=== PATIENT | female | born 1940 | race African-American/Black ===

== ENCOUNTER 2017-09-20 22:15 | Inpatient (IN) | payer OTHER ==
[~2017-09-20] VITALS: Ht 167.6 cm; Wt 81.6 kg
[2017-09-21] MEDS ORDERED: ASPIRIN 81MG TABLET PO ONE (00:15)
[2017-09-21 00:46] LABS: EOSINOPHILS % 0.6 % (0.0-5.0); HEMATOCRIT. 38.1 % (36.0-48.0); HEMOGLOBIN. 12.7 g/dL (12.0-16.0); LYMPHOCYTES % 10.2 % (20.0-50.0); MEAN CORPUSCULAR HEMOGLOBIN 26.4 pg (28.0-32.0); MEAN CORPUSCULAR VOLUME 79.3 fL (81.0-99.0); MONOCYTES % 7.9 % (2.0-8.0); NEUTROPHILS % 80.3 % (40.0-76.0); PLATELET 166 x1000/uL (130-400); RED CELL DISTRIBUTION WIDTH 14.9 % (11.6-14.6)
[2017-09-21 00:58] LABS: PROTHROMBIN TIME 10.9 sec (9.4-11.6)
[2017-09-21] MEDS ORDERED: KETOROLAC 30MG/ML VIAL IV ONE (01:00)
[2017-09-21 01:02] LABS: CARBON DIOXIDE 32 mEq/L (21-32); CHLORIDE 100 mEq/L (98-107); TROPONIN I < 0.02 ng/mL (0.00-0.04)
[2017-09-21] MEDS ORDERED: HYDROCODONE/APAP 7.5/325MG 1 TAB TABLET PO PRN (06:30)
[2017-09-21] MEDS ORDERED: GUAIFENESIN 200MG/10ML SUGAR FREE UDC PO PRN (06:30)
[2017-09-21] MEDS ORDERED: MAGNESIUM/ALUMINUM HYDROXIDE/SIMETHICONE 30ML UDC PO PRN (06:30)
[2017-09-21] MEDS ORDERED: MORPHINE SULFATE 2 MG/ML CPJ (NOT FOR IM USE) IV PRN (06:30)
[2017-09-21] MEDS ORDERED: NA PHOS,M-B/NA PHOS,DI-BA ENEMA 118ML PR PRN (06:30)
[2017-09-21] MEDS ORDERED: ONDANSETRON HCL 4MG/2ML VIAL IV PRN (06:30)
[2017-09-21] MEDS ORDERED: DOCUSATE SODIUM 100MG CAPSULE PO PRN (06:30)
[2017-09-21] MEDS ORDERED: ACETAMINOPHEN 325MG TABLET PO PRN (06:30)
[2017-09-21] MEDS ORDERED: DIPHENHYDRAMINE 50MG/ML VIAL IV PRN (06:30)
[2017-09-21] MEDS ORDERED: LORAZEPAM 0.5MG TABLET PO PRN (06:30)
[2017-09-21] MEDS ORDERED: CLONIDINE 0.1MG TABLET PO PRN (06:30)
[2017-09-21] MEDS ORDERED: IPRATROPIUM/ALBUTEROL 0.5-3(2.5)MG/3ML NEB INH PRN (06:30)
[2017-09-21 12:00] VITALS: BP_SYST 153; BP_SYST 167; BP_DIAS 70; BP_DIAS 73
[2017-09-21] MEDS ORDERED: ENOXAPARIN 40MG/0.4ML SYR SUBCUT SCH (12:00)
[2017-09-21 12:29] LABS: CARBON DIOXIDE 27 mEq/L (21-32); CHLORIDE 104 mEq/L (98-107)
[2017-09-21 12:39] VITALS: BP 153/70
[2017-09-21] MEDS ORDERED: HYDR25TA PO (12:49)
[2017-09-21] MEDS ORDERED: ATEN50TA PO (12:49)
[2017-09-21] MEDS ORDERED: LISI-604 PO (12:49)
[2017-09-21] MEDS ORDERED: SODIUM CHLORIDE 0.9% 10ML VIAL ONE (13:54)
[2017-09-21] MEDS ORDERED: DEXT 5%/0.45% NACL KCL 10MEQ/L 1,000 ML IV SCH (14:00)
[2017-09-21 15:23] LABS: *AMPHETAMINES SCREEN URINE NEGATIVE (NEGATIVE); *BARBITURATES SCREEN URINE NEGATIVE (NEGATIVE); *BENZODIAZEPINES SCREEN URINE NEGATIVE (NEGATIVE); *COCAINE SCREEN URINE NEGATIVE (NEGATIVE); CANNABINOID URINE SCREEN NEGATIVE (NEGATIVE); METHADONE URINE SCREEN NEGATIVE (NEGATIVE); OPIATES URINE SCREEN NEGATIVE (NEGATIVE); PHENCYCLIDINE URINE SCREEN NEGATIVE (NEGATIVE)
[2017-09-21 16:00] VITALS: BP 156/80
[2017-09-21 16:26] LABS: CREATINE KINASE 188 IU/L (26-192); CREATINE KINASE MB FRACTION 1.5 ng/mL (0.5-3.6); TROPONIN I < 0.02 ng/mL (0.00-0.04)
[2017-09-21 20:00] VITALS: BP 167/78
[2017-09-22] VITALS: BP 133/76
[2017-09-22 04:00] VITALS: BP 116/60
[2017-09-22 05:01] VITALS: BP 116/60
== END 2017-09-22 05:35 | disposition short-term general hospital (02) | DRG 562 ==
LOC: ER 22:15 → 7WST 09-21 05:10 → EDBEDREQ 09-21 05:12 → ENRESERV 09-21 09:55
PROVIDERS: ADMIT Internal Medicine; ATTEND Internal Medicine
PROC: 0QSJXZZ Reposition Right Fibula, External Approach (ICD-10-PCS; principal; 2017-09-21)
PROC: 0QSGXZZ Reposition Right Tibia, External Approach (ICD-10-PCS; 2017-09-21)
PROC: 2W3QX1Z Immobilization of Right Lower Leg using Splint (ICD-10-PCS; 2017-09-21)
DX: S82.291A Other fracture of shaft of right tibia, initial encounter for closed fracture (principal); G93.41 Metabolic encephalopathy; E86.0 Dehydration; S82.831A Other fracture of upper and lower end of right fibula, initial encounter for closed fracture; E78.5 Hyperlipidemia, unspecified; I10 Essential (primary) hypertension; E87.6 Hypokalemia; W01.0XXA Fall on same level from slipping, tripping and stumbling without subsequent striking against object, initial encounter; Y93.89 Activity, other specified; Y92.090 Kitchen in other non-institutional residence as the place of occurrence of the external cause; Y99.8 Other external cause status
CPT/HCPCS: 27788; 36415; 71010; 73600; 73610; 73630; 78582; 80048; 80053; 80305; 82550; 82553; 82962; 83036; 83880; 84484; 85025; 85379; 85610; 93005; 93306; 93970; 96374; 99285; A4216; A9558; J1650; J1885; J7030